=== PATIENT | male | born 1955 | race Caucasian/White ===

== ENCOUNTER 2017-01-01 14:25 | Emergency (ER) | payer OTHER, MEDICAID ==
[2017-01-01 14:31] VITALS: BP 144/81; BMI 35.4
--- NOTE | 2017-01-01 15:19 | DR.GENAD ---
HPI - PCP Primary Care Physician: JEAN CLAUDE - Complaint/Symptoms Chief Complaint:: CALLED OFFICE TO GET HIM TO FLUSH EARS OUT. HE TOLD ME TO COME TO ER. LEFT EAR IS HURTING AND GIVING ME TROUBLE. - Nurses notes reviewed Nurses Notes Review: Yes - Source History Provided: Patient - Mode of Arrival Mode of Arrival: Wheelchair - Timing Onset of Chief Complaint: 12/18/16 Came on: Gradually - Duration Duration: Intermittent How lon Duration: Days - Location Location: left ear - Severity Severity: Mild - Modifying Factors Worsens:: nothing - Associated Signs and Symptoms Associated Signs and Symptoms: left ear pain PMH - PMH Past Medical History: Yes Past Medical History: Hypertension Past Surgical History: Yes Surgical History: Other - Family History History of Family Medical Conditions: Yes Family Medical History: Cancer - Social History Does any household member use tobacco: No Alcohol Use: None Do you use any recreational Drugs:: No Lives With: Alone - infectious screening In the last 2 months have you had wt loss of >10#?: NO Have you had fever, night sweats or hemotysis?: No Have you traveled outside the country in the last 6 months?: No Isolation: Standard ROS - Review of Systems Constitutional: No Symptoms Reported Eyes: No Symptoms Reported ENTM: Ear Pain (left ear). negative: Ear Discharge, Nose Pain, Nose Discharge, Mouth Pain Respiratoy: No Symptoms Reported Cardiovascular: No Symptoms Reported Gastrointestinal/Abdominal: No Symptoms Reported Genitourinary: No Symptoms Reported Musculoskeletal: No Symptoms Reported Integumentary: No Symptoms Reported Hematologic/Lymphatic: No Symptoms Reported Endocrine: No Symptoms Reported Psychiatric: No Symptoms Reported PE - Vital Signs Vitals: Temperature 98.3 F Pulse Rate 115 Respiratory Rate 18 Blood Pressure 144/81 O2 Sat by Pulse Oximetry 97 - General Limitations: No Limitations General Appearance: Alert, In No Apparent Distress - Head Head Exam: Normal Inspection - Eyes Eye exam: Normal Appearance, EOMI. negative: Scleral Icterus, Conjunctival Injection - ENT ENT Exam: Normal External Ear Exam, Other (left canal inflammed ear canal). negative: TM's Normal Bilaterally (right canal wax blockage) External Ear Exam: Normal External Inspection, Pain with Movement (left) Mouth Exam: Normal Inspection. negative: Drooling, Trismus Throat Exam: Normal Inspection - Neck Neck Exam: Normal Inspection, Full ROM, Trachea Midline - Chest Chest Inspection: Normal Inspection - Respiratory Respiratory Exam: negative: Accessory Muscle Use, Respiratory Distress - Extremities Extremities Exam: Normal Inspection, Full ROM - Back Back Exam: Normal Inspection, Full ROM - Neurologic Neurological Exam: Alert, Oriented X3, CN II-XII Intact - Psychiatric Psychiatric Exam: Normal Affect - Diagnosis Discharge Problem: Left otitis externa Qualifiers: Otitis externa type: unspecified type Chronicity: acute Qualified Code(s): H60.502 - Unspecified acute noninfective otitis externa, left ear - Discharge Plan Condition: Stable - Follow ups/Referrals Follow ups/Referrals: Eyal Roach [Primary Care Provider] - 3 days - Instructions
== END 2017-01-01 15:39 | disposition home or self-care (01) ==
LOC: ER 14:42
DX: H60.502 Unspecified acute noninfective otitis externa, left ear (principal)
CPT/HCPCS: 99281

== ENCOUNTER 2018-11-30 14:19 | Inpatient (IN) ==
[2018-11-30 16:29] LABS: ALANINE AMINOTRANSFERASE 44 Units/L (12-78); ALBUMIN 3.7 g/dL (3.4-5.0); ALKALINE PHOSPHATASE 61 Units/L (46-116); ASPARTATE AMINO TRANSFERASE 27 Units/L (15-37); BLOOD UREA NITROGEN 18 mg/dL (7-18); CALCIUM 9.5 mg/dL (8.5-10.1); CARBON DIOXIDE 29.8 mmol/L (21-32); CHLORIDE 97 mmol/L (98-107); COR NA(FOR HYPERGLY) 136 mmol/L (136-145); CREATININE 1.33 mg/dL (0.70-1.30); SODIUM 136 mmol/L (136-145); TOTAL PROTEIN 7.9 g/dL (6.4-8.2); eGFR NON BLACK RACES 58 (>60)
[2018-11-30 16:36] LABS: BASOPHILS # (AUTO) 0.1 X10^3/uL (0.0-0.1); BASOPHILS % (AUTO) 0.9 % (0.2-1.0); EOSINOPHILS # (AUTO) 0.3 x10^3/uL (0.0-0.2); EOSINOPHILS % (AUTO) 2.1 % (0.9-2.9); HEMATOCRIT 43.3 % (42.0-54.0); HEMOGLOBIN 15.2 g/dL (13.5-18.0); LYMPHOCYTES # (AUTO) 3.4 X10^3/uL (1.3-2.9); LYMPHOCYTES % (AUTO) 24.9 % (21.0-51.0); MEAN CORPUSCULAR HEMOGLOBIN 30.4 pg (27.0-34.0); MEAN CORPUSCULAR HGB CONC 35.1 g/dL (33.0-35.0); MEAN CORPUSCULAR VOLUME 86.7 fL (80.0-100.0); MEAN PLATELET VOLUME 9.2 fL (7.4-11.0); MONOCYTES # (AUTO) 1.1 x10^3/uL (0.3-0.8); MONOCYTES % (AUTO) 8.2 % (0.0-13.0); NEUTROPHILS # (AUTO) 8.8 x10^3/uL (2.2-4.8); NEUTROPHILS % (AUTO) 63.9 % (42.0-75.0); PLATELET COUNT 208 X10^3/uL (150.0-450.0); RED CELL DISTRIBUTION WIDTH 13.1 % (11.6-16.5)
[2018-11-30 16:49] LABS: WHITE BLOOD COUNT 13.8 X10^3/uL (3.6-10.0)
[2018-11-30 16:50] LABS: PLATELET MORPHOLOGY COMMENT NORMAL (NORMAL)
[2018-11-30 16:52] VITALS: BMI 40.4
[2018-11-30] MEDS: NS 1000 ML 1,000 ML IV SCH (18:20)
[2018-11-30] MEDS ORDERED: LOMOTIL PO PRN (18:33)
[2018-11-30] MEDS ORDERED: NORCO 10/325 TAB PO PRN (18:33)
[2018-11-30] MEDS ORDERED: POTASSIUM CHL 40 MEQ/NS 0.45% 500 ML IV PRN (19:16)
[2018-11-30] MEDS ORDERED: K-RIDER 10 MEQ/NS 100 ML 10 MEQ/100 ML BAG IV PRN (19:16)
[2018-11-30] MEDS ORDERED: KLOR-CON PO PRN (19:16)
[2018-11-30] MEDS ORDERED: POTASSIUM CHLORIDE LIQ 20 MEQ UDC PO PRN (19:16)
[2018-11-30] MEDS ORDERED: POTASSIUM CHL 60 MEQ/NS 0.45% 500 ML IV PRN (19:16)
[2018-11-30] MEDS ORDERED: MICRO K EXTEN CAP 10 MEQ PO PRN (19:16)
[2018-11-30 20:15] LABS: BILIRUBIN,URINE NEGATIVE (NEGATIVE); BLOOD/HEMOGLOBIN,URINE NEGATIVE (NEGATIVE); GLUCOSE, URINE NEGATIVE (NEGATIVE); KETONES,URINE NEGATIVE (NEGATIVE); LEUKOCYTE ESTERASE ,URINE NEGATIVE (NEGATIVE); NITRITES,URINE NEGATIVE (NEGATIVE); PROTEIN,URINE 1+ (NEGATIVE); UROBILINOGEN,URINE 1+ (NORMAL)
[2018-11-30 20:24] LABS: APPEARANCE,URINE CLEAR (CLEAR); BACTERIA,URINE NEGATIVE /HPF (NEGATIVE); COLOR,URINE AMBER (YELLOW); HYALINE CASTS, URINE RARE /LPF (NEGATIVE); RBC,URINE 0-2 /HPF (NONE SEEN); SQUAMOUS EPITHELIAL CELL,UR FEW /HPF (NEGATIVE)
[2018-11-30 20:25] LABS: AMORPHOUS SEDIMENT,UR TRACE /HPF (NEGATIVE); MUCUS,URINE FEW /HPF (NEGATIVE)
[2018-11-30] MEDS: COREG TAB 12.5 MG PO SCH (21:05)
[2018-11-30] MEDS: ZOCOR TAB 20 MG PO SCH (21:05)
[2018-11-30] MEDS: MAGNESIUM SULFATE 1 GRAM/100 mL PREMIX 1 GM/100 ML BAG IV PRN ×2 (21:09→22:49)
[2018-12-01 05:45] LABS: BASOPHILS # (AUTO) 0.1 X10^3/uL (0.0-0.1); BASOPHILS % (AUTO) 0.9 % (0.2-1.0); EOSINOPHILS # (AUTO) 0.3 x10^3/uL (0.0-0.2); EOSINOPHILS % (AUTO) 3.7 % (0.9-2.9); HEMOGLOBIN 13.2 g/dL (13.5-18.0); LYMPHOCYTES # (AUTO) 1.6 X10^3/uL (1.3-2.9); LYMPHOCYTES % (AUTO) 22.3 % (21.0-51.0); MEAN CORPUSCULAR HEMOGLOBIN 30.2 pg (27.0-34.0); MEAN CORPUSCULAR HGB CONC 34.7 g/dL (33.0-35.0); MEAN CORPUSCULAR VOLUME 87.2 fL (80.0-100.0); MEAN PLATELET VOLUME 8.9 fL (7.4-11.0); MONOCYTES # (AUTO) 0.5 x10^3/uL (0.3-0.8); MONOCYTES % (AUTO) 6.8 % (0.0-13.0); NEUTROPHILS # (AUTO) 4.9 x10^3/uL (2.2-4.8); NEUTROPHILS % (AUTO) 66.3 % (42.0-75.0); PLATELET COUNT 190 X10^3/uL (150.0-450.0); RED BLOOD COUNT 4.36 X10^6/uL (4.7-6.0); RED CELL DISTRIBUTION WIDTH 12.9 % (11.6-16.5); WHITE BLOOD COUNT 7.3 X10^3/uL (3.6-10.0)
[2018-12-01 05:54] LABS: ALANINE AMINOTRANSFERASE 34 Units/L (12-78); ALBUMIN 2.9 g/dL (3.4-5.0); ALKALINE PHOSPHATASE 48 Units/L (46-116); ASPARTATE AMINO TRANSFERASE 22 Units/L (15-37); BLOOD UREA NITROGEN 17 mg/dL (7-18); CALCIUM 8.7 mg/dL (8.5-10.1); CARBON DIOXIDE 26.9 mmol/L (21-32); CHLORIDE 102 mmol/L (98-107); COR CA(FOR HYPOALB) 9.6 mg/dL (8.5-10.1); COR NA(FOR HYPERGLY) 139 mmol/L (136-145); CREATININE 1.09 mg/dL (0.70-1.30); MAGNESIUM 1.9 mg/dL (1.7-2.9); SODIUM 138 mmol/L (136-145); TOTAL PROTEIN 6.6 g/dL (6.4-8.2); eGFR NON BLACK RACES > 60 (>60)
[2018-12-01] MEDS: K-DUR TAB 20 MEQ PO PRN (07:35)
[2018-12-01] MEDS ORDERED: ZESTRIL TAB 20 MG ONE (08:45)
[2018-12-01] MEDS: COREG TAB 12.5 MG PO SCH ×2 (09:17→21:44)
[2018-12-01] MEDS: NS 1000 ML 1,000 ML IV SCH ×2 (09:17→21:51)
[2018-12-01] MEDS: ZESTRIL TAB 20 MG PO SCH (09:18)
[2018-12-01] MEDS: CHLORTHALIDONE PO SCH (09:18)
--- NOTE | 2018-12-01 11:21 | DR.H&P ---
H&P - History & Physical for Day of: H&P Date: 11/30/18 - Chief Complaint Chief Complaint: RIGHT FOOT PAIN AND SWELLING - History of Present Illness History of Present Illness: IS A 63 YEAR OLD [place] OF OURS WHO PRESENTED TO THE HOSPITAL A DIRECT ADMISSION DUE TO COMPLAINTS OF RIGHT FOOT PAIN, ERYTHEMA, AND EDEMA. PATIENT REPORTS THAT HE STARTED HAVING PAIN TO THE RIGHT ANKLE ON SATURDAY AND WAS UNABLE TO BEAR WEIGHT ON IT. HE WAS WALKING WITH CRUTCHES. ON SATURDAY, HE WAS TRANSFERRING FROM HIS SCOOTER TO HIS LIFT CHAIR AND FELL. RIGHT FOOT BECAME WEDGED UNDER THE SCOOTER. EMS ARRIVED FOR ASSISTANCE AND HAD TO LIFT SCOOTER OFF OF HIS FOOT. PATIENT RATES PAIN 10/10. HE ALSO REPORTS DIFFICULTY URINATING AT TIMES. ON ARRIVAL TO THE HOSPITAL, VITALS WERE 97.4-79-18-98%-143/77. LABS WERE OBTAINED. ABNORMAL LAB VALUES INCLUDE THE FOLLOWING: WBC 13.8, POTASSIUM 3.1, CHLORIDE 97, CREATININE 1.33, GLUCOSE 114, MAGNESIUM 1.6. URINALYSIS IS UNREMARKABLE. URINE CULTURE PENDING. WE WILL OBTAIN A RIGHT FOOT XRAY. HE WAS STARTED ON NORMAL SALINE AT 75ML/HR AND WILL RESUME HIS HOME MEDICATIONS. WE WILL ALSO START FORTAZ 1G IV Q8H. OTHERWISE, WE WILL FOLLOW UP WITH AM LABS AND CONTINUE TO MONITOR - Past Medical History Past Medical History: Hypertension - Past Surgical History Surgical History: Abdominal Surgery, Ortho Surgery, Other - Family History Family Medical History: Cancer - Social History Does patient currently use any type of tobacco product: No Have you used tobacco products in the last 12 months: No Type of Tobacco Use: None Does any household member use tobacco: No Alcohol Use: None Drug Use: None Prescription drug monitoring program results: PDMP reviewed and no concerns identified - Medications Home Medications: No Known Drug Allergies Allergy (Verified 07/01/18 10:15) CONTINUE taking the following medications carvedilol [Coreg] 12.5 mg PO BID 11/30/18 [History] chlorthalidone 25 mg PO DAILY 11/30/18 [History] diphenoxylate-atropine [Lomotil] 1 tab PO QID PRN 11/30/18 [History] hydrocodone-acetaminophen [[place]] 10 - 325 mg PO Q6H PRN 11/30/18 [History] lisinopril [Zestril] 20 mg PO DAILY 11/30/18 [History] simvastatin [Zocor] 20 mg PO HS 11/30/18 [History] - Review of Systems Constitutional: No Symptoms Reported ENT: No Symptoms Reported Respiratory: No Symptoms Reported Cardiovascular: No Symptoms Reported Gastrointestinal: No Symptoms Reported Genitourinary: Retention Musculoskeletal: Foot Pain (RIGHT FOOT PAIN ) Skin: See HPI Neurological: No Symptoms Reported - Physical Exam Vital Signs: Temperature 97.7 F Pulse Rate [Right Brachial] 65 Respiratory Rate 20 Blood Pressure [Right Arm] 130/68 Blood Pressure [Left Arm] 148/85 Blood Pressure 148/85 O2 Sat by Pulse Oximetry 96 Oriented: Normal Eyes: Normal Ear: Normal Nose: Normal Throat: Normal Respiratory: Diminished Throughout Cardiovascular: Normal : Normal Auscultation: Bowel Sounds: Normal Palpation: Normal Tenderness: Normal Skin: Red (RIGHT FOOT ), Tender, Hot Musculoskeletal: Right, Ankle, Foot, Swelling, Tender Psychiatric: Normal Mood Description: Calm Affect: Normal Speech Pattern: Clear - Assessment/Plan (1) Lower extremity cellulitis Qualifiers: Laterality: right Qualified Code(s): L03.115 - Cellulitis of right lower limb Status: Acute Plan: XRAY, MONITOR LABS, IV FORTAZ, DVT PROPHYLAXIS, CONTINUE TO MONITOR (2) Urinary retention Status: Acute - Allergies Allergies/Adverse Reactions: Allergies Allergy/AdvReac Type Severity Reaction Status Date / Time No Known Drug Allergies Allergy Verified 07/01/18 10:15
[2018-12-01] MEDS: LOVENOX INJ 40 MG SYR SC SCH (14:10)
--- NOTE | 2018-12-01 14:17 | VAS ---
HISTORY: Right leg pain Study: Deep vein Doppler ultrasound of the right lower extremity Comparison: No priors TECHNIQUE: Multiple macias scale and color flow Doppler images of the deep venous system were obtained of the right lower extremity. FINDINGS: The deep venous system of the right lower extremity was evaluated from the level of the common femoral vein through the popliteal vein. Normal color flow and augmentation can be observed. In addition, normal compression is seen throughout the deep venous system. IMPRESSION: 1. Negative for DVT. Reported By:
[2018-12-01] MEDS: FORTAZ or TAZICEF VIAL INJ IVP SCH ×3 (14:39→21:44)
[2018-12-01] MEDS: ZOCOR TAB 20 MG PO SCH (21:44)
[2018-12-02 06:08] LABS: ALANINE AMINOTRANSFERASE 32 Units/L (12-78); ALBUMIN 2.7 g/dL (3.4-5.0); ALKALINE PHOSPHATASE 43 Units/L (46-116); ASPARTATE AMINO TRANSFERASE 25 Units/L (15-37); BLOOD UREA NITROGEN 14 mg/dL (7-18); CALCIUM 8.6 mg/dL (8.5-10.1); CARBON DIOXIDE 24.6 mmol/L (21-32); CHLORIDE 104 mmol/L (98-107); COR CA(FOR HYPOALB) 9.6 mg/dL (8.5-10.1); CREATININE 1.02 mg/dL (0.70-1.30); SODIUM 139 mmol/L (136-145); TOTAL PROTEIN 6.5 g/dL (6.4-8.2); eGFR NON BLACK RACES > 60 (>60)
[2018-12-02] MEDS: FORTAZ or TAZICEF VIAL INJ IVP SCH ×3 (06:30→22:12)
[2018-12-02 06:33] LABS: BASOPHILS # (AUTO) 0.1 X10^3/uL (0.0-0.1); BASOPHILS % (AUTO) 0.9 % (0.2-1.0); EOSINOPHILS # (AUTO) 0.3 x10^3/uL (0.0-0.2); EOSINOPHILS % (AUTO) 4.2 % (0.9-2.9); HEMATOCRIT 38.1 % (42.0-54.0); HEMOGLOBIN 13.3 g/dL (13.5-18.0); LYMPHOCYTES # (AUTO) 2.1 X10^3/uL (1.3-2.9); LYMPHOCYTES % (AUTO) 27.4 % (21.0-51.0); MEAN CORPUSCULAR HEMOGLOBIN 30.1 pg (27.0-34.0); MEAN CORPUSCULAR HGB CONC 34.8 g/dL (33.0-35.0); MEAN CORPUSCULAR VOLUME 86.3 fL (80.0-100.0); MEAN PLATELET VOLUME 8.4 fL (7.4-11.0); MONOCYTES # (AUTO) 0.4 x10^3/uL (0.3-0.8); MONOCYTES % (AUTO) 5.6 % (0.0-13.0); NEUTROPHILS # (AUTO) 4.7 x10^3/uL (2.2-4.8); NEUTROPHILS % (AUTO) 61.9 % (42.0-75.0); PLATELET COUNT 203 X10^3/uL (150.0-450.0); RED BLOOD COUNT 4.41 X10^6/uL (4.7-6.0); RED CELL DISTRIBUTION WIDTH 13.1 % (11.6-16.5); WHITE BLOOD COUNT 7.5 X10^3/uL (3.6-10.0)
[2018-12-02] MEDS ORDERED: ZESTRIL TAB 20 MG ONE (09:08)
[2018-12-02] MEDS: LOVENOX INJ 40 MG SYR SC SCH (09:38)
[2018-12-02] MEDS: ZESTRIL TAB 20 MG PO SCH (09:39)
[2018-12-02] MEDS: CHLORTHALIDONE PO SCH (09:39)
[2018-12-02] MEDS: COREG TAB 12.5 MG PO SCH ×2 (09:39→22:10)
[2018-12-02] MEDS: NS 1000 ML 1,000 ML IV SCH ×2 (09:41→23:45)
[2018-12-02] MEDS: ZOCOR TAB 20 MG PO SCH (22:10)
--- NOTE | 2018-12-02 22:57 | PCM.PROG ---
Progress Note - Progress Note for Day of Date of Exam: 12/01/18 - Subjective Subjective: WAS ADMITTED FOR RIGHT LOWER EXTREMITY CELLULITIS AND URINARY RETENTION. HIS FOOT WAS WEDGED UNDER HIS SCOOTER ON SATURDAY. TODAY, HE IS ALERT AND ORIENTED, LYING IN BED ON MORNING ROUNDS. RIGHT FOOT/ANKLE CONTINUES WITH ERYTHEMA AND EDEMA. HE REPORTS THAT HE HAS BEEN URINATING WITHOUT DIFFICULTY. HIS VITALS THIS MORNING ARE: 97.7-65-20-96%-130/68. LABS WERE OBTAINED. ABNORMAL LAB VALUES INCLUDE THE FOLLOWING: RBC 4.36, HGB 13.2, HCT 38.0, POTASSIUM 3.4, GLUCOSE 131, ALBUMIN 2.9. URINE CULTURE IS PENDING. WE OBTAINED A RIGHT FOOT XRAY YESTERDAY. IT REVEALED PROMINENT SWELLING WITHOUT ACUTE OSSEOUS FINDING. WE OBTAINED A VENOUS DOPPLER TODAY. IT WAS NEGATIVE FOR DVT. TODAY, WE WILL START LOVENOX 40MG SC DAILY. OTHERWISE, WE WILL CONTINUE WITH CURRENT PLAN OF CARE. WE PLAN TO FOLLOW UP WITH AM LABS AND CONTINUE TO MONITOR. - Past Medical Family Social History Past Med/Fam/Surg Hx: No changes since H&P Allergies: Allergies No Known Drug Allergies Allergy (Verified 07/01/18 10:15) - Review of Systems ROS: No change since H&P - Vital Signs and I&O's Vital Signs: Temperature 97.9 F Pulse Rate [Right Brachial] 55 Respiratory Rate 20 Blood Pressure [Right Arm] 113/57 Blood Pressure [Left Arm] 129/75 Blood Pressure 148/85 O2 Sat by Pulse Oximetry 96 Intake and Output: Intake & Output 11/30/18 12/01/18 12/02/18 12/03/18 11:59 11:59 11:59 11:59 Intake Total 1650 / 1650 1620 / 1620 1620 / 1620 Output Total 100 / 100 1625 / 1625 700 / 700 Balance 1550 / 1550 -5 / -5 920 / 920 - Physical Exam Oriented: Normal Eyes: Normal Ear: Normal Nose: Normal Throat: Normal Respiratory: Diminished Cardiovascular: Normal : Normal Auscultation: Bowel Sounds: Normal Palpation: Normal Tenderness: Normal Skin: Red (RIGHT FOOT ), Tender, Hot Musculoskeletal: Right, Ankle, Foot, Swelling, Tender Psychiatric: Normal Mood Description: Calm Affect: Normal Speech Pattern: Clear, Appropriate - Laboratory and Diagnostics Result Diagrams: 12/02/18 06:24 12/02/18 05:22 Labs: 11/30/18 19:20 Urine,Clean Catch Urine Culture - Final Laboratory WBC 7.5 X10^3/uL (3.6-10.0) 12/02/18 06:24 RBC 4.41 X10^6/uL (4.7-6.0) L 12/02/18 06:24 Hgb 13.3 g/dL (13.5-18.0) L 12/02/18 06:24 Hct 38.1 % (42.0-54.0) L 12/02/18 06:24 MCV 86.3 fL (80.0-100.0) 12/02/18 06:24 MCH 30.1 pg (27.0-34.0) 12/02/18 06:24 MCHC 34.8 g/dL (33.0-35.0) 12/02/18 06:24 RDW 13.1 % (11.6-16.5) 12/02/18 06:24 Plt Count 203 X10^3/uL (150.0-450.0) 12/02/18 06:24 Plt Count Comment Adequate (ADEQUATE) 11/30/18 16:08 MPV 8.4 fL (7.4-11.0) 12/02/18 06:24 Neut % (Auto) 61.9 % (42.0-75.0) 12/02/18 06:24 Lymph % (Auto) 27.4 % (21.0-51.0) 12/02/18 06:24 [place] % (Auto) 5.6 % (0.0-13.0) 12/02/18 06:24 Eos % (Auto) 4.2 % (0.9-2.9) H 12/02/18 06:24 Baso % (Auto) 0.9 % (0.2-1.0) 12/02/18 06:24 Neut # (Auto) 4.7 x10^3/uL (2.2-4.8) 12/02/18 06:24 Lymph # (Auto) 2.1 X10^3/uL (1.3-2.9) 12/02/18 06:24 [place] # (Auto) 0.4 x10^3/uL (0.3-0.8) 12/02/18 06:24 Eos # (Auto) 0.3 x10^3/uL (0.0-0.2) H 12/02/18 06:24 Baso # (Auto) 0.1 X10^3/uL (0.0-0.1) 12/02/18 06:24 Absolute Nucleated RBC 0.0 /100WBC 12/02/18 06:24 Plt Clumps, EDTA Rare 11/30/18 16:08 Plt Morphology Comment Normal (NORMAL) 11/30/18 16:08 RBC Morphology Normal (NORMAL) 11/30/18 16:08 INR Target Range - 11/30/18 16:08 INR 1.18 (0.8-1.3) 11/30/18 16:08 Sodium 139 mmol/L (136-145) 12/02/18 05:22 Corrected Sodium TNP 12/02/18 05:22 Potassium 3.5 mmol/L (3.5-5.1) 12/02/18 05:22 Chloride 104 mmol/L (98-107) 12/02/18 05:22 Carbon Dioxide 24.6 mmol/L (21-32) 12/02/18 05:22 BUN 14 mg/dL (7-18) 12/02/18 05:22 Creatinine 1.02 mg/dL (0.70-1.30) 12/02/18 05:22 Est GFR (MDRD) Af Amer > 60 (>60) 12/02/18 05:22 Est GFR (MDRD) Non-Af > 60 (>60) 12/02/18 05:22 Glucose 104 mg/dL (65-99) H 12/02/18 05:22 Calcium 8.6 mg/dL (8.5-10.1) 12/02/18 05:22 Corrected Calcium 9.6 mg/dL (8.5-10.1) 12/02/18 05:22 Magnesium 1.9 mg/dL (1.7-2.9) 12/01/18 05:15 Total Bilirubin 0.40 mg/dL (0.2-1.0) 12/02/18 05:22 AST 25 Units/L (15-37) 12/02/18 05:22 ALT 32 Units/L (12-78) 12/02/18 05:22 Alkaline Phosphatase 43 Units/L (46-116) L 12/02/18 05:22 Total Protein 6.5 g/dL (6.4-8.2) 12/02/18 05:22 Albumin 2.7 g/dL (3.4-5.0) L 12/02/18 05:22 Globulin 3.8 g/dL (2.5-4.5) 12/02/18 05:22 Albumin/Globulin Ratio 0.7 Ratio (1.1-2.1) L 12/02/18 05:22 Specimen Type Catherized urine 11/30/18 19:20 Urine Color Judit (YELLOW) 11/30/18 19:20 Urine Appearance Clear (CLEAR) 11/30/18 19:20 Urine pH 5.0 (5.0 - 8.0) 11/30/18 19:20 Ur Specific [place] 1.020 (1.000-1.030) 11/30/18 19:20 Urine Protein 1+ (NEGATIVE) 11/30/18 19:20 Urine Glucose (UA) Negative (NEGATIVE) 11/30/18 19:20 Urine Ketones Negative (NEGATIVE) 11/30/18 19:20 Urine Occult Blood Negative (NEGATIVE) 11/30/18 19:20 Urine Nitrite Negative (NEGATIVE) 11/30/18 19:20 Urine Bilirubin Negative (NEGATIVE) 11/30/18 19:20 Urine Urobilinogen 1+ (NORMAL) 11/30/18 19:20 Ur Leukocyte Esterase Negative (NEGATIVE) 11/30/18 19:20 Urine RBC 0-2 /HPF (NONE SEEN) 11/30/18 19:20 Urine WBC 0-2 /HPF (NONE SEEN) 11/30/18 19:20 Ur Squamous Epith Cells Few /HPF (NEGATIVE) 11/30/18 19:20 Amorphous Sediment Trace /HPF (NEGATIVE) 11/30/18 19:20 Urine Bacteria Negative /HPF (NEGATIVE) 11/30/18 19:20 Hyaline Casts Rare /LPF (NEGATIVE) 11/30/18 19:20 Urine Mucus Few /HPF (NEGATIVE) 11/30/18 19:20 Ur Culture Indicated? No/not indicated 11/30/18 19:20 - Plan (1) Lower extremity cellulitis Status: Acute Qualifiers: Laterality: right Qualified Code(s): L03.115 - Cellulitis of right lower limb Plan: XRAY, MONITOR LABS, IV FORTAZ, DVT PROPHYLAXIS, CONTINUE TO MONITOR (2) Urinary retention Status: Acute
[2018-12-03 06:21] LABS: BASOPHILS # (AUTO) 0.1 X10^3/uL (0.0-0.1); BASOPHILS % (AUTO) 0.9 % (0.2-1.0); EOSINOPHILS # (AUTO) 0.3 x10^3/uL (0.0-0.2); EOSINOPHILS % (AUTO) 4.5 % (0.9-2.9); HEMATOCRIT 37.6 % (42.0-54.0); HEMOGLOBIN 13.2 g/dL (13.5-18.0); LYMPHOCYTES # (AUTO) 2.1 X10^3/uL (1.3-2.9); LYMPHOCYTES % (AUTO) 28.3 % (21.0-51.0); MEAN CORPUSCULAR HEMOGLOBIN 30.2 pg (27.0-34.0); MEAN CORPUSCULAR HGB CONC 35.1 g/dL (33.0-35.0); MEAN CORPUSCULAR VOLUME 86.2 fL (80.0-100.0); MEAN PLATELET VOLUME 8.2 fL (7.4-11.0); MONOCYTES # (AUTO) 0.4 x10^3/uL (0.3-0.8); MONOCYTES % (AUTO) 5.9 % (0.0-13.0); NEUTROPHILS # (AUTO) 4.4 x10^3/uL (2.2-4.8); NEUTROPHILS % (AUTO) 60.4 % (42.0-75.0); PLATELET COUNT 206 X10^3/uL (150.0-450.0); RED BLOOD COUNT 4.37 X10^6/uL (4.7-6.0); RED CELL DISTRIBUTION WIDTH 12.5 % (11.6-16.5); WHITE BLOOD COUNT 7.3 X10^3/uL (3.6-10.0)
[2018-12-03] MEDS: FORTAZ or TAZICEF VIAL INJ IVP SCH ×3 (06:29→22:30)
[2018-12-03 06:36] LABS: ALANINE AMINOTRANSFERASE 32 Units/L (12-78); ALBUMIN 2.8 g/dL (3.4-5.0); ALKALINE PHOSPHATASE 44 Units/L (46-116); ASPARTATE AMINO TRANSFERASE 29 Units/L (15-37); BLOOD UREA NITROGEN 13 mg/dL (7-18); CALCIUM 8.3 mg/dL (8.5-10.1); CARBON DIOXIDE 23.8 mmol/L (21-32); CHLORIDE 105 mmol/L (98-107); COR CA(FOR HYPOALB) 9.3 mg/dL (8.5-10.1); CREATININE 0.97 mg/dL (0.70-1.30); SODIUM 140 mmol/L (136-145); TOTAL PROTEIN 6.6 g/dL (6.4-8.2); eGFR NON BLACK RACES > 60 (>60)
[2018-12-03] MEDS ORDERED: ZESTRIL TAB 20 MG ONE (08:54)
[2018-12-03] MEDS: CHLORTHALIDONE PO SCH (10:03)
[2018-12-03] MEDS: COREG TAB 12.5 MG PO SCH ×2 (10:03→22:30)
[2018-12-03] MEDS: ZESTRIL TAB 20 MG PO SCH (10:04)
[2018-12-03] MEDS: LOVENOX INJ 40 MG SYR SC SCH (10:06)
[2018-12-03] MEDS: NS 1000 ML 1,000 ML IV SCH (10:08)
--- NOTE | 2018-12-03 21:22 | PCM.PROG ---
Progress Note - Progress Note for Day of Date of Exam: 12/02/18 - Subjective Subjective: IS BEING TREATED FOR RIGHT LOWER EXTREMITY CELLULITIS. HIS FOOT WAS WEDGED UNDER HIS SCOOTER ON SATURDAY AND REQUIRED ASSISTANCE OF SEVERAL INDIVIDUALS TO LIFT IT OFF OF HIM. TODAY, HE IS ALERT AND ORIENTED, LYING IN BED ON MORNING ROUNDS. RIGHT FOOT/ANKLE CONTINUES WITH ERYTHEMA AND EDEMA. HE CONTINUES WITH MODERATE PAIN TO THE RIGHT FOOT. HIS VITALS THIS MORNING ARE: 97.9-61-20-93%-134/64. LABS WERE OBTAINED. ABNORMAL LAB VALUES INCLUDE THE FOLLOWING: RBC 4.41, HGB 13.3, HCT 38.1, GLUCOSE 104, ALK PHOS 43, ALBUMIN 2.7. WE WILL CONTINUE WITH IV FLUIS AND PAIN CONTROL TODAY. OTHERWISE, WE PLAN TO FOLLOW UP WITH AM LABS AND CONTINUE TO MONITOR. - Past Medical Family Social History Past Med/Fam/Surg Hx: No changes since H&P Allergies: Allergies No Known Drug Allergies Allergy (Verified 07/01/18 10:15) - Review of Systems ROS: No change since H&P - Vital Signs and I&O's Vital Signs: Temperature 97.6 F Pulse Rate [Right Brachial] 54 Respiratory Rate 20 Blood Pressure [Right Arm] 119/64 Blood Pressure [Left Arm] 137/67 Blood Pressure 148/85 O2 Sat by Pulse Oximetry 97 Intake and Output: Intake & Output 12/01/18 12/02/18 12/03/18 12/04/18 11:59 11:59 11:59 11:59 Intake Total 1650 / 1650 1620 / 1620 2040 / 2040 480 / 480 Output Total 100 / 100 1625 / 1625 1750 / 1750 600 / 600 Balance 1550 / 1550 -5 / -5 290 / 290 -120 / -120 - Physical Exam Oriented: Normal Eyes: Normal Ear: Normal Nose: Normal Throat: Normal Respiratory: Diminished Cardiovascular: Normal : Normal Auscultation: Bowel Sounds: Normal Palpation: Normal Tenderness: Normal Skin: Red (RIGHT FOOT ), Tender, Hot Musculoskeletal: Right, Ankle, Foot, Swelling, Tender Psychiatric: Normal Mood Description: Calm Affect: Normal Speech Pattern: Clear, Appropriate - Laboratory and Diagnostics Result Diagrams: 12/03/18 05:47 12/03/18 05:47 Labs: 11/30/18 19:20 Urine,Clean Catch Urine Culture - Final Laboratory WBC 7.3 X10^3/uL (3.6-10.0) 12/03/18 05:47 RBC 4.37 X10^6/uL (4.7-6.0) L 12/03/18 05:47 Hgb 13.2 g/dL (13.5-18.0) L 12/03/18 05:47 Hct 37.6 % (42.0-54.0) L 12/03/18 05:47 MCV 86.2 fL (80.0-100.0) 12/03/18 05:47 MCH 30.2 pg (27.0-34.0) 12/03/18 05:47 MCHC 35.1 g/dL (33.0-35.0) H 12/03/18 05:47 RDW 12.5 % (11.6-16.5) 12/03/18 05:47 Plt Count 206 X10^3/uL (150.0-450.0) 12/03/18 05:47 Plt Count Comment Adequate (ADEQUATE) 11/30/18 16:08 MPV 8.2 fL (7.4-11.0) 12/03/18 05:47 Neut % (Auto) 60.4 % (42.0-75.0) 12/03/18 05:47 Lymph % (Auto) 28.3 % (21.0-51.0) 12/03/18 05:47 [place] % (Auto) 5.9 % (0.0-13.0) 12/03/18 05:47 Eos % (Auto) 4.5 % (0.9-2.9) H 12/03/18 05:47 Baso % (Auto) 0.9 % (0.2-1.0) 12/03/18 05:47 Neut # (Auto) 4.4 x10^3/uL (2.2-4.8) 12/03/18 05:47 Lymph # (Auto) 2.1 X10^3/uL (1.3-2.9) 12/03/18 05:47 [place] # (Auto) 0.4 x10^3/uL (0.3-0.8) 12/03/18 05:47 Eos # (Auto) 0.3 x10^3/uL (0.0-0.2) H 12/03/18 05:47 Baso # (Auto) 0.1 X10^3/uL (0.0-0.1) 12/03/18 05:47 Absolute Nucleated RBC 0.0 /100WBC 12/03/18 05:47 Plt Clumps, EDTA Rare 11/30/18 16:08 Plt Morphology Comment Normal (NORMAL) 11/30/18 16:08 RBC Morphology Normal (NORMAL) 11/30/18 16:08 INR Target Range - 11/30/18 16:08 INR 1.18 (0.8-1.3) 11/30/18 16:08 Sodium 140 mmol/L (136-145) 12/03/18 05:47 Corrected Sodium TNP 12/03/18 05:47 Potassium 3.5 mmol/L (3.5-5.1) 12/03/18 05:47 Chloride 105 mmol/L (98-107) 12/03/18 05:47 Carbon Dioxide 23.8 mmol/L (21-32) 12/03/18 05:47 BUN 13 mg/dL (7-18) 12/03/18 05:47 Creatinine 0.97 mg/dL (0.70-1.30) 12/03/18 05:47 Est GFR (MDRD) Af Amer > 60 (>60) 12/03/18 05:47 Est GFR (MDRD) Non-Af > 60 (>60) 12/03/18 05:47 Glucose 99 mg/dL (65-99) 12/03/18 05:47 Calcium 8.3 mg/dL (8.5-10.1) L 12/03/18 05:47 Corrected Calcium 9.3 mg/dL (8.5-10.1) 12/03/18 05:47 Magnesium 1.9 mg/dL (1.7-2.9) 12/01/18 05:15 Total Bilirubin 0.40 mg/dL (0.2-1.0) 12/03/18 05:47 AST 29 Units/L (15-37) 12/03/18 05:47 ALT 32 Units/L (12-78) 12/03/18 05:47 Alkaline Phosphatase 44 Units/L (46-116) L 12/03/18 05:47 Total Protein 6.6 g/dL (6.4-8.2) 12/03/18 05:47 Albumin 2.8 g/dL (3.4-5.0) L 12/03/18 05:47 Globulin 3.8 g/dL (2.5-4.5) 12/03/18 05:47 Albumin/Globulin Ratio 0.7 Ratio (1.1-2.1) L 12/03/18 05:47 Specimen Type Catherized urine 11/30/18 19:20 Urine Color Judit (YELLOW) 11/30/18 19:20 Urine Appearance Clear (CLEAR) 11/30/18 19:20 Urine pH 5.0 (5.0 - 8.0) 11/30/18 19:20 Ur Specific [place] 1.020 (1.000-1.030) 11/30/18 19:20 Urine Protein 1+ (NEGATIVE) 11/30/18 19:20 Urine Glucose (UA) Negative (NEGATIVE) 11/30/18 19:20 Urine Ketones Negative (NEGATIVE) 11/30/18 19:20 Urine Occult Blood Negative (NEGATIVE) 11/30/18 19:20 Urine Nitrite Negative (NEGATIVE) 11/30/18 19:20 Urine Bilirubin Negative (NEGATIVE) 11/30/18 19:20 Urine Urobilinogen 1+ (NORMAL) 11/30/18 19:20 Ur Leukocyte Esterase Negative (NEGATIVE) 11/30/18 19:20 Urine RBC 0-2 /HPF (NONE SEEN) 11/30/18 19:20 Urine WBC 0-2 /HPF (NONE SEEN) 11/30/18 19:20 Ur Squamous Epith Cells Few /HPF (NEGATIVE) 11/30/18 19:20 Amorphous Sediment Trace /HPF (NEGATIVE) 11/30/18 19:20 Urine Bacteria Negative /HPF (NEGATIVE) 11/30/18 19:20 Hyaline Casts Rare /LPF (NEGATIVE) 11/30/18 19:20 Urine Mucus Few /HPF (NEGATIVE) 11/30/18 19:20 Ur Culture Indicated? No/not indicated 11/30/18 19:20 - Plan (1) Lower extremity cellulitis Status: Acute Qualifiers: Laterality: right Qualified Code(s): L03.115 - Cellulitis of right lower limb Plan: XRAY, MONITOR LABS, IV FORTAZ, DVT PROPHYLAXIS, CONTINUE TO MONITOR (2) Urinary retention Status: Acute
[2018-12-03] MEDS: ZOCOR TAB 20 MG PO SCH (22:30)
[2018-12-04] MEDS: NS 1000 ML 1,000 ML IV SCH ×3 (00:40→22:15)
[2018-12-04] MEDS: FORTAZ or TAZICEF VIAL INJ IVP SCH ×3 (05:27→22:11)
[2018-12-04 06:18] LABS: BASOPHILS # (AUTO) 0.1 X10^3/uL (0.0-0.1); BASOPHILS % (AUTO) 0.9 % (0.2-1.0); EOSINOPHILS # (AUTO) 0.3 x10^3/uL (0.0-0.2); EOSINOPHILS % (AUTO) 3.9 % (0.9-2.9); HEMATOCRIT 37.9 % (42.0-54.0); HEMOGLOBIN 13.4 g/dL (13.5-18.0); LYMPHOCYTES # (AUTO) 1.7 X10^3/uL (1.3-2.9); LYMPHOCYTES % (AUTO) 19.4 % (21.0-51.0); MEAN CORPUSCULAR HEMOGLOBIN 30.2 pg (27.0-34.0); MEAN CORPUSCULAR HGB CONC 35.3 g/dL (33.0-35.0); MEAN CORPUSCULAR VOLUME 85.7 fL (80.0-100.0); MEAN PLATELET VOLUME 7.9 fL (7.4-11.0); MONOCYTES # (AUTO) 0.5 x10^3/uL (0.3-0.8); MONOCYTES % (AUTO) 6.2 % (0.0-13.0); NEUTROPHILS % (AUTO) 69.6 % (42.0-75.0); PLATELET COUNT 222 X10^3/uL (150.0-450.0); RED BLOOD COUNT 4.42 X10^6/uL (4.7-6.0); RED CELL DISTRIBUTION WIDTH 12.7 % (11.6-16.5); WHITE BLOOD COUNT 8.6 X10^3/uL (3.6-10.0)
[2018-12-04 06:55] LABS: ALANINE AMINOTRANSFERASE 38 Units/L (12-78); ALBUMIN 2.9 g/dL (3.4-5.0); ALKALINE PHOSPHATASE 44 Units/L (46-116); ASPARTATE AMINO TRANSFERASE 34 Units/L (15-37); BLOOD UREA NITROGEN 10 mg/dL (7-18); CALCIUM 8.5 mg/dL (8.5-10.1); CARBON DIOXIDE 24.1 mmol/L (21-32); CHLORIDE 103 mmol/L (98-107); COR CA(FOR HYPOALB) 9.4 mg/dL (8.5-10.1); CREATININE 0.91 mg/dL (0.70-1.30); SODIUM 139 mmol/L (136-145); TOTAL PROTEIN 6.7 g/dL (6.4-8.2); eGFR NON BLACK RACES > 60 (>60)
[2018-12-04] MEDS ORDERED: ZESTRIL TAB 20 MG ONE (09:11)
[2018-12-04] MEDS: LOVENOX INJ 40 MG SYR SC SCH (09:49)
[2018-12-04] MEDS: CHLORTHALIDONE PO SCH (09:50)
[2018-12-04] MEDS: COREG TAB 12.5 MG PO SCH ×2 (09:50→22:11)
[2018-12-04] MEDS: ZESTRIL TAB 20 MG PO SCH (09:53)
[2018-12-04] MEDS: K-DUR TAB 20 MEQ PO PRN (10:30)
--- NOTE | 2018-12-04 21:33 | PCM.PROG ---
Progress Note - Progress Note for Day of Date of Exam: 12/03/18 - Subjective Subjective: IS BEING TREATED FOR RIGHT LOWER EXTREMITY CELLULITIS. HIS FOOT WAS WEDGED UNDER HIS SCOOTER ON SATURDAY AND REQUIRED ASSISTANCE OF SEVERAL INDIVIDUALS TO LIFT IT OFF OF HIM. TODAY, HE IS ALERT AND ORIENTED, LYING IN BED ON MORNING ROUNDS. RIGHT FOOT/ANKLE CONTINUES WITH ERYTHEMA AND EDEMA. HE CONTINUES WITH MODERATE PAIN TO THE RIGHT FOOT AND REPORTS THAT HE IS NOT ABLE TO AMBULATE WELL. HIS VITALS THIS MORNING ARE: 98.0-55-18-94%-113/78. LABS WERE OBTAINED. ABNORMAL LAB VALUES INCLUDE THE FOLLOWING: RBC 4.37, HGB 13.2, HCT 37.6, CALCIUM 8.3, ALK PHOS 44, ALBUMIN 2.8. WE WILL CONTINUE WITH IV FLUIDS AND PAIN CONTROL TODAY. OTHERWISE, WE PLAN TO FOLLOW UP WITH AM LABS AND CONTINUE TO MONITOR. - Past Medical Family Social History Past Med/Fam/Surg Hx: No changes since H&P Allergies: Allergies No Known Drug Allergies Allergy (Verified 07/01/18 10:15) - Review of Systems ROS: No change since H&P - Vital Signs and I&O's Vital Signs: Temperature 98.3 F Pulse Rate [Right Brachial] 62 Respiratory Rate 18 Blood Pressure [Right Arm] 131/78 Blood Pressure [Left Arm] 137/67 Blood Pressure 148/85 O2 Sat by Pulse Oximetry 96 Intake and Output: Intake & Output 12/02/18 12/03/18 12/04/18 12/05/18 11:59 11:59 11:59 11:59 Intake Total 1620 / 1620 2040 / 2040 920 / 920 480 / 480 Output Total 1625 / 1625 1750 / 1750 2100 / 2100 1000 / 1000 Balance -5 / -5 290 / 290 -1180 / -1180 -520 / -520 - Physical Exam Oriented: Normal Eyes: Normal Ear: Normal Nose: Normal Throat: Normal Respiratory: Diminished Cardiovascular: Normal : Normal Auscultation: Bowel Sounds: Normal Palpation: Normal Tenderness: Normal Skin: Red (RIGHT FOOT ), Tender, Hot Musculoskeletal: Right, Ankle, Foot, Swelling, Tender Psychiatric: Normal Mood Description: Calm Affect: Normal Speech Pattern: Clear, Appropriate - Laboratory and Diagnostics Result Diagrams: 12/04/18 05:50 12/04/18 05:50 Labs: 11/30/18 19:20 Urine,Clean Catch Urine Culture - Final Laboratory WBC 8.6 X10^3/uL (3.6-10.0) 12/04/18 05:50 RBC 4.42 X10^6/uL (4.7-6.0) L 12/04/18 05:50 Hgb 13.4 g/dL (13.5-18.0) L 12/04/18 05:50 Hct 37.9 % (42.0-54.0) L 12/04/18 05:50 MCV 85.7 fL (80.0-100.0) 12/04/18 05:50 MCH 30.2 pg (27.0-34.0) 12/04/18 05:50 MCHC 35.3 g/dL (33.0-35.0) H 12/04/18 05:50 RDW 12.7 % (11.6-16.5) 12/04/18 05:50 Plt Count 222 X10^3/uL (150.0-450.0) 12/04/18 05:50 Plt Count Comment Adequate (ADEQUATE) 11/30/18 16:08 MPV 7.9 fL (7.4-11.0) 12/04/18 05:50 Neut % (Auto) 69.6 % (42.0-75.0) 12/04/18 05:50 Lymph % (Auto) 19.4 % (21.0-51.0) L 12/04/18 05:50 [place] % (Auto) 6.2 % (0.0-13.0) 12/04/18 05:50 Eos % (Auto) 3.9 % (0.9-2.9) H 12/04/18 05:50 Baso % (Auto) 0.9 % (0.2-1.0) 12/04/18 05:50 Neut # (Auto) 6.0 x10^3/uL (2.2-4.8) H 12/04/18 05:50 Lymph # (Auto) 1.7 X10^3/uL (1.3-2.9) 12/04/18 05:50 Dick[place] # (Auto) 0.5 x10^3/uL (0.3-0.8) 12/04/18 05:50 Eos # (Auto) 0.3 x10^3/uL (0.0-0.2) H 12/04/18 05:50 Baso # (Auto) 0.1 X10^3/uL (0.0-0.1) 12/04/18 05:50 Absolute Nucleated RBC 0.0 /100WBC 12/04/18 05:50 Plt Clumps, EDTA Rare 11/30/18 16:08 Plt Morphology Comment Normal (NORMAL) 11/30/18 16:08 RBC Morphology Normal (NORMAL) 11/30/18 16:08 INR Target Range - 11/30/18 16:08 INR 1.18 (0.8-1.3) 11/30/18 16:08 Sodium 139 mmol/L (136-145) 12/04/18 05:50 Corrected Sodium TNP 12/04/18 05:50 Potassium 3.3 mmol/L (3.5-5.1) L 12/04/18 05:50 Chloride 103 mmol/L (98-107) 12/04/18 05:50 Carbon Dioxide 24.1 mmol/L (21-32) 12/04/18 05:50 BUN 10 mg/dL (7-18) 12/04/18 05:50 Creatinine 0.91 mg/dL (0.70-1.30) 12/04/18 05:50 Est GFR (MDRD) Af Amer > 60 (>60) 12/04/18 05:50 Est GFR (MDRD) Non-Af > 60 (>60) 12/04/18 05:50 Glucose 90 mg/dL (65-99) 12/04/18 05:50 Calcium 8.5 mg/dL (8.5-10.1) 12/04/18 05:50 Corrected Calcium 9.4 mg/dL (8.5-10.1) 12/04/18 05:50 Magnesium 1.9 mg/dL (1.7-2.9) 12/01/18 05:15 Total Bilirubin 0.40 mg/dL (0.2-1.0) 12/04/18 05:50 AST 34 Units/L (15-37) 12/04/18 05:50 ALT 38 Units/L (12-78) 12/04/18 05:50 Alkaline Phosphatase 44 Units/L (46-116) L 12/04/18 05:50 Total Protein 6.7 g/dL (6.4-8.2) 12/04/18 05:50 Albumin 2.9 g/dL (3.4-5.0) L 12/04/18 05:50 Globulin 3.8 g/dL (2.5-4.5) 12/04/18 05:50 Albumin/Globulin Ratio 0.8 Ratio (1.1-2.1) L 12/04/18 05:50 Specimen Type Catherized urine 11/30/18 19:20 Urine Color Judit (YELLOW) 11/30/18 19:20 Urine Appearance Clear (CLEAR) 11/30/18 19:20 Urine pH 5.0 (5.0 - 8.0) 11/30/18 19:20 Ur Specific [place] 1.020 (1.000-1.030) 11/30/18 19:20 Urine Protein 1+ (NEGATIVE) 11/30/18 19:20 Urine Glucose (UA) Negative (NEGATIVE) 11/30/18 19:20 Urine Ketones Negative (NEGATIVE) 11/30/18 19:20 Urine Occult Blood Negative (NEGATIVE) 11/30/18 19:20 Urine Nitrite Negative (NEGATIVE) 11/30/18 19:20 Urine Bilirubin Negative (NEGATIVE) 11/30/18 19:20 Urine Urobilinogen 1+ (NORMAL) 11/30/18 19:20 Ur Leukocyte Esterase Negative (NEGATIVE) 11/30/18 19:20 Urine RBC 0-2 /HPF (NONE SEEN) 11/30/18 19:20 Urine WBC 0-2 /HPF (NONE SEEN) 11/30/18 19:20 Ur Squamous Epith Cells Few /HPF (NEGATIVE) 11/30/18 19:20 Amorphous Sediment Trace /HPF (NEGATIVE) 11/30/18 19:20 Urine Bacteria Negative /HPF (NEGATIVE) 11/30/18 19:20 Hyaline Casts Rare /LPF (NEGATIVE) 11/30/18 19:20 Urine Mucus Few /HPF (NEGATIVE) 11/30/18 19:20 Ur Culture Indicated? No/not indicated 11/30/18 19:20 - Plan (1) Lower extremity cellulitis Status: Acute Qualifiers: Laterality: right Qualified Code(s): L03.115 - Cellulitis of right lower limb Plan: MONITOR LABS, IV FORTAZ, DVT PROPHYLAXIS, CONTINUE TO MONITOR (2) Urinary retention Status: Acute
[2018-12-04] MEDS: ZOCOR TAB 20 MG PO SCH (22:11)
[2018-12-05] MEDS: FORTAZ or TAZICEF VIAL INJ IVP SCH (05:00)
[2018-12-05 05:41] LABS: BASOPHILS # (AUTO) 0.1 X10^3/uL (0.0-0.1); BASOPHILS % (AUTO) 0.8 % (0.2-1.0); EOSINOPHILS # (AUTO) 0.2 x10^3/uL (0.0-0.2); EOSINOPHILS % (AUTO) 2.3 % (0.9-2.9); HEMATOCRIT 38.6 % (42.0-54.0); HEMOGLOBIN 13.7 g/dL (13.5-18.0); LYMPHOCYTES # (AUTO) 1.9 X10^3/uL (1.3-2.9); LYMPHOCYTES % (AUTO) 17.1 % (21.0-51.0); MEAN CORPUSCULAR HEMOGLOBIN 30.4 pg (27.0-34.0); MEAN CORPUSCULAR HGB CONC 35.4 g/dL (33.0-35.0); MEAN CORPUSCULAR VOLUME 85.8 fL (80.0-100.0); MEAN PLATELET VOLUME 8.8 fL (7.4-11.0); MONOCYTES # (AUTO) 0.7 x10^3/uL (0.3-0.8); MONOCYTES % (AUTO) 6.1 % (0.0-13.0); NEUTROPHILS % (AUTO) 73.7 % (42.0-75.0); PLATELET COUNT 226 X10^3/uL (150.0-450.0); RED CELL DISTRIBUTION WIDTH 12.5 % (11.6-16.5); WHITE BLOOD COUNT 10.9 X10^3/uL (3.6-10.0)
[2018-12-05 06:01] LABS: ALANINE AMINOTRANSFERASE 36 Units/L (12-78); ALBUMIN 3.1 g/dL (3.4-5.0); ALKALINE PHOSPHATASE 46 Units/L (46-116); ASPARTATE AMINO TRANSFERASE 28 Units/L (15-37); BLOOD UREA NITROGEN 12 mg/dL (7-18); CALCIUM 8.3 mg/dL (8.5-10.1); CARBON DIOXIDE 25.1 mmol/L (21-32); CHLORIDE 102 mmol/L (98-107); CREATININE 1.04 mg/dL (0.70-1.30); MAGNESIUM 1.3 mg/dL (1.7-2.9); SODIUM 138 mmol/L (136-145); TOTAL PROTEIN 6.9 g/dL (6.4-8.2); eGFR NON BLACK RACES > 60 (>60)
[2018-12-05] MEDS ORDERED: ZESTRIL TAB 20 MG ONE (08:33)
[2018-12-05] MEDS: ZESTRIL TAB 20 MG PO SCH (09:44)
[2018-12-05] MEDS: COREG TAB 12.5 MG PO SCH (09:44)
[2018-12-05] MEDS: LOVENOX INJ 40 MG SYR SC SCH (09:44)
[2018-12-05] MEDS: CHLORTHALIDONE PO SCH (09:44)
[2018-12-05 13:31] VITALS: BP 93/54
== END 2018-12-05 13:25 | disposition home or self-care (01) | DRG 603 ==
LOC: MED/SURG
PROVIDERS: ADMIT Internal Medicine; ATTEND Internal Medicine
DX: R26.89 Other abnormalities of gait and mobility; I10 Essential (primary) hypertension; R33.8 Other retention of urine; L03.115 Cellulitis of right lower limb
CPT/HCPCS: 36415; 71010; 71045; 73630; 80053; 81001; 83735; 85025; 85610; 87086; 93005; 93971; 97110; 97162; 97530; A4222; G0378; J0713; J1650; J3475; J7030